=== PATIENT | male | born 2000 | race Hispanic/Latino ===

== ENCOUNTER 2022-12-05 12:28 | Emergency (ER) | payer MEDICARE, OTHER ==
[~2022-12-05] VITALS: Ht 175.3 cm; Wt 77.1 kg
[~2022-12-05 12:28] MED LIST: ADDERALL XR 2020 MG PO; ALBUTEROL0.63 MG/3 INH; DEX; INTUNIV3 MG; INTUNIV3 MG PO; RISPERDAL0.25 MG PO; [UNRECOGNIZED DRUG - OTHER]
[2022-12-05 12:55] VITALS: O2SAT 100
== END 2022-12-05 13:25 | disposition home or self-care (01) ==
LOC: ER 12:41
DX: H61.21 Impacted cerumen, right ear (principal); F90.9 Attention-deficit hyperactivity disorder, unspecified type; F17.210 Nicotine dependence, cigarettes, uncomplicated
CPT/HCPCS: 99283